=== PATIENT | female | born 1975 | race Caucasian/White ===

== ENCOUNTER → 2020-11-26 | Outpatient (CLI) | payer BC, OTHER | END | disposition home or self-care (01) | LOC: RAD 09:06 | PROVIDERS: ATTEND Nurse Practitioner | DX: K31.84 Gastroparesis (principal); R10.13 Epigastric pain; K21.9 Gastro-esophageal reflux disease without esophagitis | CPT/HCPCS: 78264; A9541 ==

== ENCOUNTER 2020-11-30 10:30 | Outpatient (CLI) | payer BC, OTHER | END 2020-11-30 23:59 | disposition home or self-care (01) | LOC: RAD 10:30 | PROVIDERS: ATTEND Nurse Practitioner | DX: K21.9 Gastro-esophageal reflux disease without esophagitis (principal); R10.13 Epigastric pain | CPT/HCPCS: 78227; A9537; J2805 ==